=== PATIENT | male | born 1975 | race Caucasian/White ===

== ENCOUNTER 2021-11-20 23:41 | Inpatient (IN) | payer BC, SELFPAY ==
[2021-11-21 02:02] VITALS: BMI 30.3
[2021-11-21 03:49] LABS: Amphetamine Not Detected (NotDetected); Barbiturates Screen Not Detected (NotDetected); Benzodiazepine Screen Not Detected (NotDetected); Cocaine Metabolite Screen Not Detected (NotDetected); Methadone Not Detected (NotDetected); Methamphetamine Not Detected (NotDetected); Opiate Screen Detected (NotDetected); Oxycodone Screen Not Detected (NotDetected); Phencyclidine (PCP) Not Detected (NotDetected); THC/Cannabinoid Screen Not Detected (NotDetected); Tricyclic Screen Not Detected (NotDetected)
[2021-11-21 03:56] LABS: Bacteria/HPF None Seen HPF (None Seen); Bilirubin Negative (Negative); Blood, Urine 1+ (Negative); Calcium Oxalate Crystals Rare HPF (None Seen); Clarity Clear (Clear); Glucose, Urine (Dipstick) Normal (Negative); Ketone, Urine Negative (Negative); Leukocyte 250 Leu/uL (Negative); Nitrite Negative (Negative); Protein, Urine (Dipstick) 30 mg/dL (Neg-Trace); Specific Gravity, Urine 1.014 (1.002-1.036); Squamous Epithelial 0-3 HPF (0-3); Urobilinogen Normal mg/dL (Less than 2); WBC/HPF 21-50 HPF (0-3); pH, Urine 5.5 (5.0-9.0)
[2021-11-21 04:00] LABS: Creatinine, Urine 123.84 mg/dL (63-166)
[2021-11-21] MEDS: Sodium Chloride 0.9% 1,000 ML IV SCH ×3 (04:34→21:25)
[2021-11-21 06:35] LABS: #Eosinphils 0.3 thou/uL (0.0-0.7); #Lymphocytes 1.1 thou/uL (1.20-3.40); #Monocytes 0.4 thou/uL (0.11-0.59); %Basophils 0.1 % (0.0-1.0); %Eosinophils 7.9 % (0.0-10.0); %Lymphocytes 28.2 % (21.0-51.0); %Monocytes 9.8 % (0.0-10.0); Hemoglobin 10.3 g/dL (14.0-18.0); Mean Corpuscular HGB CONC 35.4 g/dL (32.0-36.0); Mean Corpuscular Hemoglobin 32.9 pg (27.0-31.0); Mean Corpuscular Volume 92.8 fL (78.0-98.0); Mean Platelet Volume 8.3 fL (7.4-10.4); Platelet Count 135 thou/uL (130-400); RBC Distribution Width 14.5 % (11.5-14.5); Red Blood Cell (RBC) Count 3.15 mill/uL (4.70-6.10); White Blood Cell (WBC) Count 3.8 thou/uL (4.8-10.8)
[2021-11-21 06:55] LABS: Hemoglobin A1c 4.5 % (4.0-6.0)
[2021-11-21 07:09] LABS: Phosphorus 2.9 mg/dL (2.3-4.7)
[2021-11-21 07:13] LABS: ALT (SGPT) 10 U/L (8-55); AST (SGOT) 16 U/L (5-34); Albumin 2.9 g/dL (3.5-5.0); Alkaline Phosphatase 64 U/L (40-110); Anion Gap 10 mmol/L (10-20); BUN (Urea Nitrogen) 24 mg/dL (8.9-20.6); Bilirubin, Total 0.9 mg/dL (0.2-1.2); CK (CPK) 39 U/L (30-200); Calc. Creatinine Clearance 48 mL/min (70-130); Calcium 10.3 mg/dL (7.8-10.44); Carbon Dioxide 22 mmol/L (22-29); Chloride 111 mmol/L (98-107); Glucose 98 mg/dL (70-105); Potassium 3.2 mmol/L (3.5-5.1); Protein, Total 6.9 g/dL (6.0-8.3); Sodium 140 mmol/L (136-145)
[2021-11-21 07:24] LABS: Band 12 % (5-11); Eosinophils 8 % (0-10); Lymphocytes 30 % (21-51); Metamyelocyte 1 % (0-0); Monocytes 6 % (0-10)
[2021-11-21 07:25] LABS: Neutrophil 43 % (42-75); Platelet Morphology Comment Appears Adequate; Polychromasia SLIGHT = 2-3 cells (100X) (0-2/hpf)
[2021-11-21 07:33] LABS: Vitamin B12 232 pg/mL (211-911)
[2021-11-21 07:38] LABS: HIV (1/2) Antibody/Antigen Non-Reactive (NonReactive); HIV 1/2 INDEX 0.09 S/CO (<1.00); Hep C IgG Ab Non-Reactive (NonReactive); Hep C Index 0.39 S/CO (0-0.79)
[2021-11-21] MEDS: Heparin 5,000 UNITS/ML VIAL SC SCH ×3 (09:02→20:55)
[2021-11-21] MEDS ORDERED: Potassium Chloride 20 MEQ TAB PO SCH (10:00)
[2021-11-21 10:56] LABS: Syphilis Antibody Nonreactive (Nonreactive); Syphilis Antibody Index 0.12 S/CO (<1.00 Non-Reactive)
[2021-11-21] MEDS: Acetaminophen 325 MG TAB PO PRN (11:12)
[2021-11-21] MEDS ORDERED: Magnevist 469MG/ML 20 ML VIAL ONE ×4 (12:09)
[2021-11-21 13:44] LABS: Anion Gap 10 mmol/L (10-20); BUN (Urea Nitrogen) 22 mg/dL (8.9-20.6); Calc. Creatinine Clearance 50 mL/min (70-130); Calcium 9.6 mg/dL (7.8-10.44); Carbon Dioxide 20 mmol/L (22-29); Chloride 112 mmol/L (98-107); Glucose 118 mg/dL (70-105); Potassium 3.4 mmol/L (3.5-5.1); Sodium 139 mmol/L (136-145)
[2021-11-21] MEDS ORDERED: traMADol HCl 50 MG TAB PO SCH (21:15)
[2021-11-22 05:22] LABS: #Eosinphils 0.4 thou/uL (0.0-0.7); #Lymphocytes 0.7 thou/uL (1.20-3.40); #Monocytes 0.4 thou/uL (0.11-0.59); #Neutrophils 2.5 thou/uL (1.40-6.50); %Basophils 0.1 % (0.0-1.0); %Eosinophils 9.8 % (0.0-10.0); %Lymphocytes 17.4 % (21.0-51.0); %Monocytes 9.3 % (0.0-10.0); %Neutrophils 63.3 % (42.0-75.0); Hemoglobin 10.6 g/dL (14.0-18.0); Mean Corpuscular HGB CONC 34.9 g/dL (32.0-36.0); Mean Corpuscular Hemoglobin 32.1 pg (27.0-31.0); Mean Platelet Volume 8.1 fL (7.4-10.4); Platelet Count 148 thou/uL (130-400); RBC Distribution Width 14.4 % (11.5-14.5); Red Blood Cell (RBC) Count 3.31 mill/uL (4.70-6.10)
[2021-11-22 05:47] LABS: ALT (SGPT) 12 U/L (8-55); AST (SGOT) 14 U/L (5-34); Alkaline Phosphatase 74 U/L (40-110); Anion Gap 10 mmol/L (10-20); BUN (Urea Nitrogen) 19 mg/dL (8.9-20.6); Bilirubin, Total 0.8 mg/dL (0.2-1.2); Calc. Creatinine Clearance 56 mL/min (70-130); Calcium 9.5 mg/dL (7.8-10.44); Carbon Dioxide 23 mmol/L (22-29); Chloride 110 mmol/L (98-107); Globulin 4.1 g/dL (2.4-3.5); Glucose 89 mg/dL (70-105); Potassium 3.5 mmol/L (3.5-5.1); Protein, Total 7.1 g/dL (6.0-8.3); Sodium 139 mmol/L (136-145)
[2021-11-22] MEDS: Sodium Chloride 0.9% 1,000 ML IV SCH ×2 (05:50→15:12)
[2021-11-22] MEDS: Heparin 5,000 UNITS/ML VIAL SC SCH ×3 (08:30→22:11)
[2021-11-22] MEDS ORDERED: NIFEdipine XL 60 MG TAB PO SCH (09:15)
[2021-11-22] MEDS ORDERED: Lorazepam 2 MG/ML VIAL SLOW IVP SCH (09:15)
[2021-11-22] MEDS: Lidocaine 5% Patch TD PRN (12:20)
[2021-11-22] MEDS ORDERED: Cyclobenzaprine 10 MG TAB PO SCH (14:30)
[2021-11-22] MEDS ORDERED: Simethicone Chewable 80 MG TAB PO SCH (22:45)
[2021-11-22] MEDS ORDERED: Ondansetron ODT 4 MG TAB PO PRN (22:54)
[2021-11-22] MEDS ORDERED: Simethicone Chewable 80 MG TAB PO PRN (23:52)
[2021-11-23] MEDS: Sodium Chloride 0.9% 1,000 ML IV SCH ×4 (01:28→23:59)
[2021-11-23 05:28] LABS: #Eosinphils 0.3 thou/uL (0.0-0.7); #Lymphocytes 0.8 thou/uL (1.20-3.40); #Monocytes 0.3 thou/uL (0.11-0.59); #Neutrophils 2.5 thou/uL (1.40-6.50); %Eosinophils 7.2 % (0.0-10.0); %Lymphocytes 20.5 % (21.0-51.0); %Monocytes 7.9 % (0.0-10.0); %Neutrophils 64.5 % (42.0-75.0); Hemoglobin 11.2 g/dL (14.0-18.0); Mean Corpuscular HGB CONC 34.8 g/dL (32.0-36.0); Mean Corpuscular Hemoglobin 32.2 pg (27.0-31.0); Mean Corpuscular Volume 92.6 fL (78.0-98.0); Mean Platelet Volume 7.9 fL (7.4-10.4); Platelet Count 144 thou/uL (130-400); RBC Distribution Width 14.7 % (11.5-14.5); Red Blood Cell (RBC) Count 3.48 mill/uL (4.70-6.10); White Blood Cell (WBC) Count 3.9 thou/uL (4.8-10.8)
[2021-11-23 05:51] LABS: ALT (SGPT) 55 U/L (8-55); AST (SGOT) 110 U/L (5-34); Albumin 3.1 g/dL (3.5-5.0); Alkaline Phosphatase 225 U/L (40-110); Anion Gap 10 mmol/L (10-20); BUN (Urea Nitrogen) 14 mg/dL (8.9-20.6); Bilirubin, Total 2.3 mg/dL (0.2-1.2); Calc. Creatinine Clearance 61 mL/min (70-130); Calcium 9.6 mg/dL (7.8-10.44); Carbon Dioxide 25 mmol/L (22-29); Chloride 110 mmol/L (98-107); Globulin 4.2 g/dL (2.4-3.5); Glucose 95 mg/dL (70-105); Potassium 3.3 mmol/L (3.5-5.1); Protein, Total 7.3 g/dL (6.0-8.3); Sodium 142 mmol/L (136-145)
[2021-11-23] MEDS ORDERED: Potassium Chloride 20 MEQ TAB PO SCH (08:15)
[2021-11-23] MEDS: Heparin 5,000 UNITS/ML VIAL SC SCH ×3 (09:11→21:11)
[2021-11-23] MEDS: Polyethylene Glycol 3350 17 GM Packet PO SCH ×2 (09:11→21:11)
[2021-11-23] MEDS: NIFEdipine XL 30 MG TAB PO SCH (09:11)
[2021-11-23] MEDS: Senokot 8.6 MG TAB PO SCH (09:12)
[2021-11-23 14:45] LABS: Troponin I 0.124 ng/mL (< 0.028)
[2021-11-23] MEDS ORDERED: NIFEdipine XL 30 MG TAB PO SCH (15:15)
[2021-11-23] MEDS ORDERED: Aspirin 81 mg Enteric Coated Tablet PO SCH (15:15)
[2021-11-23 16:36] LABS: Amphetamine Not Detected (NotDetected); Barbiturates Screen Not Detected (NotDetected); Benzodiazepine Screen Not Detected (NotDetected); Cocaine Metabolite Screen Not Detected (NotDetected); Methadone Not Detected (NotDetected); Methamphetamine Not Detected (NotDetected); Opiate Screen Not Detected (NotDetected); Oxycodone Screen Not Detected (NotDetected); Phencyclidine (PCP) Not Detected (NotDetected); THC/Cannabinoid Screen Not Detected (NotDetected); Tricyclic Screen Not Detected (NotDetected)
[2021-11-23] MEDS: Lidocaine 5% Patch TD PRN (17:26)
[2021-11-23 17:38] LABS: Troponin I 0.117 ng/mL (< 0.028)
[2021-11-23 20:50] LABS: Troponin I 0.098 ng/mL (< 0.028)
[2021-11-23] MEDS ORDERED: traMADol HCl 50 MG TAB PO PRN (23:11)
[2021-11-23] MEDS: Acetaminophen 325 MG TAB PO PRN (23:14)
[2021-11-23] MEDS ORDERED: Gabapentin 100 MG CAP PO SCH (23:45)
[2021-11-24 05:13] LABS: #Eosinphils 0.4 thou/uL (0.0-0.7); #Lymphocytes 0.8 thou/uL (1.20-3.40); #Monocytes 0.3 thou/uL (0.11-0.59); #Neutrophils 2.5 thou/uL (1.40-6.50); %Eosinophils 9.7 % (0.0-10.0); %Lymphocytes 20.6 % (21.0-51.0); %Monocytes 7.5 % (0.0-10.0); %Neutrophils 61.2 % (42.0-75.0); Hemoglobin 10.7 g/dL (14.0-18.0); Mean Corpuscular HGB CONC 34.1 g/dL (32.0-36.0); Mean Corpuscular Hemoglobin 31.7 pg (27.0-31.0); Platelet Count 140 thou/uL (130-400); RBC Distribution Width 14.5 % (11.5-14.5); Red Blood Cell (RBC) Count 3.39 mill/uL (4.70-6.10); White Blood Cell (WBC) Count 4.1 thou/uL (4.8-10.8)
[2021-11-24 05:35] LABS: ALT (SGPT) 33 U/L (8-55); AST (SGOT) 29 U/L (5-34); Alkaline Phosphatase 174 U/L (40-110); Anion Gap 8 mmol/L (10-20); BUN (Urea Nitrogen) 10 mg/dL (8.9-20.6); Bilirubin, Total 0.8 mg/dL (0.2-1.2); Calc. Creatinine Clearance 74 mL/min (70-130); Calcium 8.8 mg/dL (7.8-10.44); Carbon Dioxide 22 mmol/L (22-29); Chloride 114 mmol/L (98-107); Globulin 4.1 g/dL (2.4-3.5); Glucose 92 mg/dL (70-105); Protein, Total 7.1 g/dL (6.0-8.3); Sodium 141 mmol/L (136-145)
[2021-11-24 05:38] LABS: Potassium 2.9 mmol/L (3.5-5.1)
[2021-11-24] MEDS ORDERED: Potassium Chloride 20 MEQ TAB PO SCH ×2 (05:45→08:00)
[2021-11-24] MEDS: Senokot 8.6 MG TAB PO SCH (07:39)
[2021-11-24] MEDS: Polyethylene Glycol 3350 17 GM Packet PO SCH ×2 (07:39→20:53)
[2021-11-24] MEDS: Aspirin 81 mg Enteric Coated Tablet PO SCH (08:32)
[2021-11-24] MEDS: NIFEdipine XL 30 MG TAB PO SCH (08:32)
[2021-11-24] MEDS: Sodium Chloride 0.9% 1,000 ML IV SCH ×3 (08:32→22:36)
[2021-11-24] MEDS: Heparin 5,000 UNITS/ML VIAL SC SCH ×3 (08:33→20:53)
[2021-11-24] MEDS: Gabapentin 100 MG CAP PO SCH ×3 (08:33→20:52)
[2021-11-24] MEDS ORDERED: NIFEdipine XL 60 MG TAB PO SCH (09:00)
[2021-11-24 10:54] LABS: CSF Source CSF; Clarity Clear (Clear); Tube # 4
[2021-11-24 11:07] LABS: CSF RBC Count - Manual 1 /cu.mm (None Seen); CSF WBC/NonHematics Count-Man 110 /cu.mm (0-5)
[2021-11-24 11:25] LABS: CSF, Glucose 15 mg/dl (40-70)
[2021-11-24 12:06] LABS: Cell Count Non Hematic 10 %; Lymphocytes 88 %; Segmented Neutrophils 2 %
[2021-11-24] MEDS ORDERED: Morphine 2 MG/ML VIAL ONE (12:43)
[2021-11-24 13:47] LABS: CSF, Protein 220 mg/dL (15-40)
[2021-11-24 15:42] LABS: Potassium 3.5 mmol/L (3.5-5.1)
[2021-11-24 15:43] LABS: Ref Lab Test Ordered MTB PCR; Reference Lab Name LABCORP
[2021-11-24 16:24] LABS: Anion Gap 11 mmol/L (10-20); BUN (Urea Nitrogen) 10 mg/dL (8.9-20.6); Calc. Creatinine Clearance 66 mL/min (70-130); Calcium 9.7 mg/dL (7.8-10.44); Carbon Dioxide 21 mmol/L (22-29); Chloride 112 mmol/L (98-107); Glucose 141 mg/dL (70-105); Potassium 3.5 mmol/L (3.5-5.1); Sodium 140 mmol/L (136-145)
[2021-11-25] MEDS: Calcium Carbonate 500 MG ChewTAB PO PRN (01:16)
[2021-11-25] MEDS: Acetaminophen 325 MG TAB PO PRN (03:14)
[2021-11-25 05:01] LABS: #Eosinphils 0.3 thou/uL (0.0-0.7); #Lymphocytes 0.9 thou/uL (1.20-3.40); #Monocytes 0.3 thou/uL (0.11-0.59); #Neutrophils 2.7 thou/uL (1.40-6.50); %Basophils 0.8 % (0.0-1.0); %Eosinophils 7.4 % (0.0-10.0); %Lymphocytes 20.6 % (21.0-51.0); %Monocytes 7.8 % (0.0-10.0); %Neutrophils 63.5 % (42.0-75.0); Hemoglobin 10.6 g/dL (14.0-18.0); Mean Corpuscular HGB CONC 34.8 g/dL (32.0-36.0); Mean Corpuscular Hemoglobin 32.5 pg (27.0-31.0); Mean Corpuscular Volume 93.3 fL (78.0-98.0); Mean Platelet Volume 8.2 fL (7.4-10.4); Platelet Count 132 thou/uL (130-400); RBC Distribution Width 14.5 % (11.5-14.5); Red Blood Cell (RBC) Count 3.27 mill/uL (4.70-6.10); White Blood Cell (WBC) Count 4.3 thou/uL (4.8-10.8)
[2021-11-25 05:39] LABS: ALT (SGPT) 25 U/L (8-55); AST (SGOT) 19 U/L (5-34); Alkaline Phosphatase 154 U/L (40-110); Anion Gap 8 mmol/L (10-20); BUN (Urea Nitrogen) 14 mg/dL (8.9-20.6); Bilirubin, Total 0.7 mg/dL (0.2-1.2); Calc. Creatinine Clearance 76 mL/min (70-130); Calcium 9.1 mg/dL (7.8-10.44); Carbon Dioxide 21 mmol/L (22-29); Cardiac Risk 4.3 (Less than 4.5); Chloride 112 mmol/L (98-107); Cholesterol 116 mg/dl (< 200 Desired); Glucose 103 mg/dL (70-105); HDL Cholesterol 27 mg/dL (>60 Neg Risk); LDL Cholesterol, Calculated 37 mg/dL; Potassium 3.3 mmol/L (3.5-5.1); Sodium 138 mmol/L (136-145); Triglycerides 258 mg/dL (Less than 150)
[2021-11-25] MEDS: Sodium Chloride 0.9% 1,000 ML IV SCH ×2 (08:01→14:44)
[2021-11-25] MEDS: Aspirin 81 mg Enteric Coated Tablet PO SCH (08:02)
[2021-11-25] MEDS: Polyethylene Glycol 3350 17 GM Packet PO SCH ×2 (08:02→19:51)
[2021-11-25] MEDS: Carvedilol 6.25 MG TAB PO SCH ×2 (08:02→16:45)
[2021-11-25] MEDS: Heparin 5,000 UNITS/ML VIAL SC SCH ×3 (08:02→19:57)
[2021-11-25] MEDS: Gabapentin 100 MG CAP PO SCH ×3 (08:02→19:56)
[2021-11-25] MEDS: Senokot 8.6 MG TAB PO SCH (08:02)
[2021-11-25] MEDS ORDERED: Potassium Chloride 20 MEQ TAB PO SCH (15:15)
[2021-11-25] MEDS ORDERED: Ibuprofen 100 MG/5 ML UDCUP PO SCH (15:15)
[2021-11-26] MEDS: Sodium Chloride 0.9% 1,000 ML IV SCH ×3 (01:20→17:30)
[2021-11-26 05:27] LABS: #Eosinphils 0.5 thou/uL (0.0-0.7); #Lymphocytes 0.9 thou/uL (1.20-3.40); #Monocytes 0.3 thou/uL (0.11-0.59); #Neutrophils 2.6 thou/uL (1.40-6.50); %Basophils 0.3 % (0.0-1.0); %Eosinophils 10.9 % (0.0-10.0); %Lymphocytes 21.2 % (21.0-51.0); %Monocytes 6.6 % (0.0-10.0); Hemoglobin 12.5 g/dL (14.0-18.0); Mean Corpuscular HGB CONC 34.2 g/dL (32.0-36.0); Mean Corpuscular Hemoglobin 32.3 pg (27.0-31.0); Mean Corpuscular Volume 94.3 fL (78.0-98.0); Mean Platelet Volume 8.3 fL (7.4-10.4); Platelet Count 132 thou/uL (130-400); RBC Distribution Width 14.5 % (11.5-14.5); Red Blood Cell (RBC) Count 3.86 mill/uL (4.70-6.10); White Blood Cell (WBC) Count 4.2 thou/uL (4.8-10.8)
[2021-11-26 05:57] LABS: Phosphorus 2.2 mg/dL (2.3-4.7)
[2021-11-26 05:58] LABS: ALT (SGPT) 25 U/L (8-55); AST (SGOT) 24 U/L (5-34); Albumin 3.3 g/dL (3.5-5.0); Alkaline Phosphatase 140 U/L (40-110); Anion Gap 11 mmol/L (10-20); BUN (Urea Nitrogen) 15 mg/dL (8.9-20.6); Bilirubin, Total 0.8 mg/dL (0.2-1.2); Calc. Creatinine Clearance 74 mL/min (70-130); Calcium 9.7 mg/dL (7.8-10.44); Carbon Dioxide 21 mmol/L (22-29); Chloride 111 mmol/L (98-107); Globulin 4.6 g/dL (2.4-3.5); Glucose 87 mg/dL (70-105); Magnesium 1.6 mg/dL (1.6-2.6); Potassium 3.7 mmol/L (3.5-5.1); Protein, Total 7.9 g/dL (6.0-8.3); Sodium 139 mmol/L (136-145)
[2021-11-26 06:02] LABS: Troponin I 0.086 ng/mL (< 0.028)
[2021-11-26] MEDS: hydrALAZINE 20 MG/ML VIAL SLOW IVP PRN (06:14)
[2021-11-26] MEDS: Aspirin 81 mg Enteric Coated Tablet PO SCH (08:31)
[2021-11-26] MEDS: Polyethylene Glycol 3350 17 GM Packet PO SCH ×2 (08:31→20:39)
[2021-11-26] MEDS: Gabapentin 100 MG CAP PO SCH ×3 (08:31→20:21)
[2021-11-26] MEDS: Heparin 5,000 UNITS/ML VIAL SC SCH ×3 (08:31→20:29)
[2021-11-26] MEDS: Senokot 8.6 MG TAB PO SCH (08:31)
[2021-11-26] MEDS ORDERED: Magnesium 2 GM/50 ML(in water) 2 GM in Premix Bag 1 BAG IVPB SCH (09:30)
[2021-11-26] MEDS ORDERED: PHOS-NAK 1 PKT PACK PO SCH (09:30)
[2021-11-26 15:14] LABS: Myelin Basic Protein, CSF 15.5 ng/mL (0.0-4.7)
[2021-11-26 16:14] LABS: A/G Ratio 0.8 (0.7-1.7); Albumin 3.4 g/dL (2.9-4.4); Alpha 1 0.3 g/dL (0.0-0.4); Alpha 2 0.5 g/dL (0.4-1.0); Beta 1.1 g/dL (0.7-1.3); Gamma 2.4 g/dL (0.4-1.8); Globulin, Total 4.3 g/dL (2.2-3.9); M-Spike 1.3 g/dL (Not Observed)
[2021-11-26] MEDS ORDERED: Carvedilol 6.25 MG TAB PO SCH (17:00)
[2021-11-26] MEDS: Acetaminophen 325 MG TAB PO PRN (17:23)
[2021-11-26] MEDS ORDERED: diphenhydrAMINE 50 MG/ML VIAL IVP SCH (20:00)
[2021-11-26] MEDS ORDERED: Fentanyl 100 MCG/2 ML VIAL SLOW IVP SCH (20:00)
[2021-11-26] MEDS: Lisinopril 10 MG TAB PO SCH (23:18)
[2021-11-27] MEDS: Sodium Chloride 0.9% 1,000 ML IV SCH (03:22)
[2021-11-27 07:18] LABS: #Eosinphils 0.5 thou/uL (0.0-0.7); #Monocytes 0.4 thou/uL (0.11-0.59); #Neutrophils 2.4 thou/uL (1.40-6.50); %Eosinophils 11.9 % (0.0-10.0); %Lymphocytes 23.9 % (21.0-51.0); %Neutrophils 55.2 % (42.0-75.0); Hemoglobin 10.5 g/dL (14.0-18.0); Mean Corpuscular HGB CONC 33.9 g/dL (32.0-36.0); Mean Corpuscular Hemoglobin 31.9 pg (27.0-31.0); Mean Platelet Volume 8.3 fL (7.4-10.4); Platelet Count 117 thou/uL (130-400); RBC Distribution Width 14.6 % (11.5-14.5); Red Blood Cell (RBC) Count 3.29 mill/uL (4.70-6.10); White Blood Cell (WBC) Count 4.3 thou/uL (4.8-10.8)
[2021-11-27 07:32] LABS: Albumin 2.9 g/dL (3.5-5.0); Alkaline Phosphatase 103 U/L (40-110); Anion Gap 9 mmol/L (10-20); Bilirubin, Total 0.6 mg/dL (0.2-1.2); Calc. Creatinine Clearance 65 mL/min (70-130); Carbon Dioxide 22 mmol/L (22-29); Chloride 111 mmol/L (98-107); Globulin 3.9 g/dL (2.4-3.5); Glucose 90 mg/dL (70-105); Potassium 3.4 mmol/L (3.5-5.1); Protein, Total 6.8 g/dL (6.0-8.3); Sodium 139 mmol/L (136-145)
[2021-11-27 07:42] LABS: ALT (SGPT) 23 U/L (8-55); AST (SGOT) 21 U/L (5-34); BUN (Urea Nitrogen) 22 mg/dL (8.9-20.6)
[2021-11-27] MEDS ORDERED: Regadenoson 0.4 MG/5 ML SYRINGE ONE (08:51)
[2021-11-27] MEDS ORDERED: Magnesium 2 GM/50 ML(in water) 2 GM in Premix Bag 1 BAG IVPB SCH (09:00)
[2021-11-27] MEDS ORDERED: PHOS-NAK 1 PKT PACK PO SCH (09:00)
[2021-11-27] MEDS ORDERED: Potassium Chloride 20 MEQ TAB PO SCH (09:00)
[2021-11-27] MEDS: Gabapentin 100 MG CAP PO SCH ×3 (09:17→20:27)
[2021-11-27] MEDS: Polyethylene Glycol 3350 17 GM Packet PO SCH ×2 (09:17→20:23)
[2021-11-27] MEDS: Aspirin 81 mg Enteric Coated Tablet PO SCH (09:17)
[2021-11-27] MEDS: Lisinopril 10 MG TAB PO SCH ×2 (09:17→20:26)
[2021-11-27] MEDS: Heparin 5,000 UNITS/ML VIAL SC SCH ×3 (09:17→20:28)
[2021-11-27] MEDS: Senokot 8.6 MG TAB PO SCH (15:13)
[2021-11-27 15:15] LABS: Albumin-Ur 37.4 % (.); Alpha 1 - Ur 7.3 % (.); Beta-Ur 22.7 % (.); Gamma-Ur 22.6 % (.); M-Spike,% 10.1 % (Not Observed); Protein, Urine 8.9 mg/dL (Not Estab.)
[2021-11-27] MEDS: hydrALAZINE 20 MG/ML VIAL SLOW IVP PRN (15:39)
[2021-11-27] MEDS: Carvedilol 6.25 MG TAB PO SCH (17:06)
[2021-11-27] MEDS: Acetaminophen 325 MG TAB PO PRN (20:56)
[2021-11-28] MEDS: Polyethylene Glycol 3350 17 GM Packet PO SCH ×2 (09:22→23:02)
[2021-11-28] MEDS: Senokot 8.6 MG TAB PO SCH (09:22)
[2021-11-28] MEDS: Carvedilol 6.25 MG TAB PO SCH ×2 (09:22→16:25)
[2021-11-28] MEDS: Lisinopril 10 MG TAB PO SCH ×2 (09:23→20:57)
[2021-11-28] MEDS: Aspirin 81 mg Enteric Coated Tablet PO SCH (09:23)
[2021-11-28] MEDS: Gabapentin 100 MG CAP PO SCH ×3 (09:23→20:57)
[2021-11-28] MEDS: Heparin 5,000 UNITS/ML VIAL SC SCH ×3 (09:27→20:59)
[2021-11-28 14:15] LABS: West Nile Virus IgG Ab - CSF Positive (Negative); West Nile Virus IgM Ab - CSF Negative (Negative)
[2021-11-28 15:06] LABS: ANA Symphony (Qualitative) Negative (Negative); ANA Symphony (Quantitative) 0.2 Ratio (< 0.7 Negative); dsDNA IgG Antibody 0.7 IU/mL (<10 Negative)
[2021-11-29 05:26] LABS: #Eosinphils 0.5 thou/uL (0.0-0.7); #Monocytes 0.3 thou/uL (0.11-0.59); #Neutrophils 2.1 thou/uL (1.40-6.50); %Eosinophils 13.7 % (0.0-10.0); %Lymphocytes 25.5 % (21.0-51.0); %Monocytes 7.2 % (0.0-10.0); %Neutrophils 53.5 % (42.0-75.0); Hemoglobin 10.7 g/dL (14.0-18.0); Mean Corpuscular HGB CONC 34.6 g/dL (32.0-36.0); Mean Corpuscular Hemoglobin 32.5 pg (27.0-31.0); Mean Corpuscular Volume 93.8 fL (78.0-98.0); Mean Platelet Volume 8.5 fL (7.4-10.4); Platelet Count 123 thou/uL (130-400); RBC Distribution Width 14.6 % (11.5-14.5); Red Blood Cell (RBC) Count 3.29 mill/uL (4.70-6.10); White Blood Cell (WBC) Count 3.8 thou/uL (4.8-10.8)
[2021-11-29 05:50] LABS: ALT (SGPT) 17 U/L (8-55); AST (SGOT) 14 U/L (5-34); Alkaline Phosphatase 90 U/L (40-110); Anion Gap 9 mmol/L (10-20); BUN (Urea Nitrogen) 20 mg/dL (8.9-20.6); Bilirubin, Total 0.7 mg/dL (0.2-1.2); Calc. Creatinine Clearance 71 mL/min (70-130); Carbon Dioxide 23 mmol/L (22-29); Chloride 109 mmol/L (98-107); Glucose 89 mg/dL (70-105); Potassium 3.8 mmol/L (3.5-5.1); Sodium 137 mmol/L (136-145)
[2021-11-29] MEDS: Lisinopril 10 MG TAB PO SCH ×2 (09:52→20:14)
[2021-11-29] MEDS: Gabapentin 100 MG CAP PO SCH ×3 (09:52→20:14)
[2021-11-29] MEDS: Carvedilol 6.25 MG TAB PO SCH ×2 (09:52→15:39)
[2021-11-29] MEDS: Heparin 5,000 UNITS/ML VIAL SC SCH ×3 (09:52→20:18)
[2021-11-29] MEDS: Polyethylene Glycol 3350 17 GM Packet PO SCH ×3 (09:52→20:27)
[2021-11-29] MEDS: Senokot 8.6 MG TAB PO SCH ×2 (09:52→09:57)
[2021-11-29] MEDS: Aspirin 81 mg Enteric Coated Tablet PO SCH (09:53)
[2021-11-29] MEDS: Acetaminophen 325 MG TAB PO PRN (11:08)
[2021-11-29] MEDS: Calcium Carbonate 500 MG ChewTAB PO PRN (21:28)
[2021-11-30] MEDS: Heparin 5,000 UNITS/ML VIAL SC SCH ×3 (09:11→20:09)
[2021-11-30] MEDS: Carvedilol 6.25 MG TAB PO SCH ×2 (09:11→16:45)
[2021-11-30] MEDS: Aspirin 81 mg Enteric Coated Tablet PO SCH (09:11)
[2021-11-30] MEDS: Gabapentin 100 MG CAP PO SCH ×3 (09:11→20:09)
[2021-11-30] MEDS: Lisinopril 10 MG TAB PO SCH ×2 (09:11→20:09)
[2021-11-30] MEDS: Lidocaine 5% Patch TD PRN (10:47)
[2021-11-30] MEDS: Acetaminophen 325 MG TAB PO PRN (10:47)
[2021-11-30] MEDS: Senokot 8.6 MG TAB PO SCH (11:31)
[2021-11-30] MEDS: Polyethylene Glycol 3350 17 GM Packet PO SCH ×2 (11:31→20:13)
[2021-11-30] MEDS: predniSONE 50 MG TAB PO SCH (20:09)
[2021-12-01] MEDS: predniSONE 50 MG TAB PO SCH ×2 (02:01→08:03)
[2021-12-01] MEDS: Calcium Carbonate 500 MG ChewTAB PO PRN ×2 (06:41→17:39)
[2021-12-01] MEDS ORDERED: diphenhydrAMINE 50 MG CAP PO SCH (08:00)
[2021-12-01] MEDS: Gabapentin 100 MG CAP PO SCH ×3 (08:03→21:54)
[2021-12-01] MEDS: Carvedilol 6.25 MG TAB PO SCH ×3 (08:03→17:39)
[2021-12-01] MEDS: Lisinopril 10 MG TAB PO SCH ×2 (08:03→21:54)
[2021-12-01] MEDS: Aspirin 81 mg Enteric Coated Tablet PO SCH (08:03)
[2021-12-01] MEDS: Senokot 8.6 MG TAB PO SCH (08:04)
[2021-12-01] MEDS: Polyethylene Glycol 3350 17 GM Packet PO SCH ×2 (08:04→21:55)
[2021-12-01] MEDS: Heparin 5,000 UNITS/ML VIAL SC SCH ×3 (08:06→21:55)
[2021-12-01 08:20] LABS: #Eosinphils 0.1 thou/uL (0.0-0.7); #Lymphocytes 0.6 thou/uL (1.20-3.40); #Monocytes 0.1 thou/uL (0.11-0.59); #Neutrophils 3.1 thou/uL (1.40-6.50); %Eosinophils 2.8 % (0.0-10.0); %Lymphocytes 14.6 % (21.0-51.0); %Monocytes 3.2 % (0.0-10.0); %Neutrophils 79.4 % (42.0-75.0); Hemoglobin 11.8 g/dL (14.0-18.0); Mean Corpuscular HGB CONC 34.5 g/dL (32.0-36.0); Mean Corpuscular Hemoglobin 32.8 pg (27.0-31.0); Mean Corpuscular Volume 94.9 fL (78.0-98.0); Platelet Count 141 thou/uL (130-400); RBC Distribution Width 14.7 % (11.5-14.5); Red Blood Cell (RBC) Count 3.59 mill/uL (4.70-6.10); White Blood Cell (WBC) Count 3.9 thou/uL (4.8-10.8)
[2021-12-01 08:43] LABS: ALT (SGPT) 15 U/L (8-55); AST (SGOT) 11 U/L (5-34); Albumin 3.3 g/dL (3.5-5.0); Alkaline Phosphatase 107 U/L (40-110); Anion Gap 10 mmol/L (10-20); BUN (Urea Nitrogen) 23 mg/dL (8.9-20.6); Bilirubin, Total 0.5 mg/dL (0.2-1.2); Calc. Creatinine Clearance 64 mL/min (70-130); Calcium 9.6 mg/dL (7.8-10.44); Carbon Dioxide 25 mmol/L (22-29); Chloride 106 mmol/L (98-107); Globulin 4.3 g/dL (2.4-3.5); Glucose 226 mg/dL (70-105); Potassium 4.1 mmol/L (3.5-5.1); Protein, Total 7.6 g/dL (6.0-8.3); Sodium 137 mmol/L (136-145)
[2021-12-01] MEDS ORDERED: Iopamidol-370 76% 500 ML 1 ML ONE (10:32)
[2021-12-02] MEDS: Calcium Carbonate 500 MG ChewTAB PO PRN (08:43)
[2021-12-02] MEDS: Senokot 8.6 MG TAB PO SCH (08:44)
[2021-12-02] MEDS: Lisinopril 10 MG TAB PO SCH ×2 (08:44→22:59)
[2021-12-02] MEDS: Carvedilol 6.25 MG TAB PO SCH ×3 (08:45→18:02)
[2021-12-02] MEDS: Gabapentin 100 MG CAP PO SCH ×3 (08:45→22:59)
[2021-12-02] MEDS: Polyethylene Glycol 3350 17 GM Packet PO SCH ×2 (08:47→23:50)
[2021-12-02] MEDS: Heparin 5,000 UNITS/ML VIAL SC SCH ×3 (08:53→22:58)
[2021-12-02] MEDS: Acetaminophen 325 MG TAB PO PRN (12:11)
[2021-12-02] MEDS: Lidocaine 5% Patch TD PRN (12:12)
[2021-12-02] MEDS ORDERED: Lidocaine 1% PF 5 ML VIAL ONE (13:25)
[2021-12-02] MEDS ORDERED: Sodium Bicarbonate 2.5 MEQ/5 ML VIAL ONE (13:25)
[2021-12-02] MEDS: Aspirin 81 mg Enteric Coated Tablet PO SCH (14:10)
[2021-12-03 05:27] LABS: Band 3 % (5-11); Eosinophils 1 % (0-10); Hemoglobin 10.3 g/dL (14.0-18.0); Hypochromia SLIGHT = 6-15 cells (100X) (0-5/hpf); Lymphocytes 21 % (21-51); MDiff Complete? YES; Mean Corpuscular HGB CONC 33.6 g/dL (32.0-36.0); Mean Corpuscular Hemoglobin 32.4 pg (27.0-31.0); Mean Corpuscular Volume 96.3 fL (78.0-98.0); Mean Platelet Volume 8.4 fL (7.4-10.4); Monocytes 8 % (0-10); Neutrophil 67 % (42-75); Platelet Count 144 thou/uL (130-400); Platelet Morphology Comment Appears Adequate; RBC Distribution Width 15.1 % (11.5-14.5); Red Blood Cell (RBC) Count 3.19 mill/uL (4.70-6.10); White Blood Cell (WBC) Count 3.8 thou/uL (4.8-10.8)
[2021-12-03 05:31] LABS: ALT (SGPT) 11 U/L (8-55); AST (SGOT) 9 U/L (5-34); Albumin 2.9 g/dL (3.5-5.0); Alkaline Phosphatase 81 U/L (40-110); Anion Gap 9 mmol/L (10-20); BUN (Urea Nitrogen) 30 mg/dL (8.9-20.6); Bilirubin, Total 0.4 mg/dL (0.2-1.2); Calc. Creatinine Clearance 61 mL/min (70-130); Calcium 9.3 mg/dL (7.8-10.44); Carbon Dioxide 26 mmol/L (22-29); Chloride 107 mmol/L (98-107); Globulin 3.5 g/dL (2.4-3.5); Glucose 102 mg/dL (70-105); Potassium 3.8 mmol/L (3.5-5.1); Protein, Total 6.4 g/dL (6.0-8.3); Sodium 138 mmol/L (136-145)
[2021-12-03] MEDS: Carvedilol 6.25 MG TAB PO SCH ×2 (08:21→16:20)
[2021-12-03] MEDS: Gabapentin 100 MG CAP PO SCH ×3 (08:21→19:45)
[2021-12-03] MEDS: Aspirin 81 mg Enteric Coated Tablet PO SCH (08:21)
[2021-12-03] MEDS: Lisinopril 10 MG TAB PO SCH ×2 (08:22→21:42)
[2021-12-03] MEDS: Acetaminophen 500 MG TAB PO PRN (08:22)
[2021-12-03] MEDS: Senokot 8.6 MG TAB PO SCH (08:23)
[2021-12-03] MEDS: Polyethylene Glycol 3350 17 GM Packet PO SCH ×2 (08:23→21:42)
[2021-12-03] MEDS: Heparin 5,000 UNITS/ML VIAL SC SCH ×3 (08:24→19:48)
[2021-12-03 09:29] LABS: Phosphorus 2.5 mg/dL (2.3-4.7)
[2021-12-03] MEDS ORDERED: Lidocaine 1% PF 5 ML VIAL ONE (14:28)
[2021-12-04] MEDS: Aspirin 81 mg Enteric Coated Tablet PO SCH (08:59)
[2021-12-04] MEDS: Senokot 8.6 MG TAB PO SCH (08:59)
[2021-12-04] MEDS: Heparin 5,000 UNITS/ML VIAL SC SCH ×3 (08:59→20:57)
[2021-12-04] MEDS: Carvedilol 6.25 MG TAB PO SCH ×2 (08:59→16:58)
[2021-12-04] MEDS: Gabapentin 100 MG CAP PO SCH ×3 (09:00→20:57)
[2021-12-04] MEDS: Lisinopril 10 MG TAB PO SCH ×2 (09:00→20:57)
[2021-12-04] MEDS: Polyethylene Glycol 3350 17 GM Packet PO SCH ×2 (09:01→20:58)
[2021-12-04 09:20] LABS: QuantiFERON-TB Gold Plus Negative (Negative)
[2021-12-05 05:15] LABS: #Eosinphils 0.7 thou/uL (0.0-0.7); #Lymphocytes 0.9 thou/uL (1.20-3.40); #Monocytes 0.4 thou/uL (0.11-0.59); #Neutrophils 2.3 thou/uL (1.40-6.50); %Basophils 0.2 % (0.0-1.0); %Eosinophils 16.3 % (0.0-10.0); %Lymphocytes 21.1 % (21.0-51.0); %Monocytes 8.5 % (0.0-10.0); %Neutrophils 53.8 % (42.0-75.0); Hemoglobin 10.5 g/dL (14.0-18.0); Mean Corpuscular HGB CONC 34.7 g/dL (32.0-36.0); Mean Corpuscular Hemoglobin 32.4 pg (27.0-31.0); Mean Corpuscular Volume 93.4 fL (78.0-98.0); Mean Platelet Volume 7.9 fL (7.4-10.4); Platelet Count 137 thou/uL (130-400); Red Blood Cell (RBC) Count 3.23 mill/uL (4.70-6.10); White Blood Cell (WBC) Count 4.3 thou/uL (4.8-10.8)
[2021-12-05 05:28] LABS: ALT (SGPT) 11 U/L (8-55); AST (SGOT) 9 U/L (5-34); Alkaline Phosphatase 69 U/L (40-110); Anion Gap 9 mmol/L (10-20); BUN (Urea Nitrogen) 26 mg/dL (8.9-20.6); Bilirubin, Total 0.4 mg/dL (0.2-1.2); Calc. Creatinine Clearance 64 mL/min (70-130); Calcium 9.6 mg/dL (7.8-10.44); Carbon Dioxide 26 mmol/L (22-29); Chloride 107 mmol/L (98-107); Globulin 3.5 g/dL (2.4-3.5); Glucose 108 mg/dL (70-105); Potassium 3.7 mmol/L (3.5-5.1); Protein, Total 6.5 g/dL (6.0-8.3); Sodium 138 mmol/L (136-145)
[2021-12-05 07:19] LABS: Final Culture No virus isolated. (.)
[2021-12-05] MEDS: Lisinopril 10 MG TAB PO SCH ×2 (08:26→21:39)
[2021-12-05] MEDS: Carvedilol 6.25 MG TAB PO SCH ×2 (08:26→16:07)
[2021-12-05] MEDS: Gabapentin 100 MG CAP PO SCH ×3 (08:26→21:39)
[2021-12-05] MEDS: Heparin 5,000 UNITS/ML VIAL SC SCH ×3 (08:26→21:41)
[2021-12-05] MEDS: Aspirin 81 mg Enteric Coated Tablet PO SCH (08:26)
[2021-12-05] MEDS: Polyethylene Glycol 3350 17 GM Packet PO SCH ×2 (08:33→21:40)
[2021-12-05] MEDS: Senokot 8.6 MG TAB PO SCH (08:33)
[2021-12-05] MEDS: Calcium Carbonate 500 MG ChewTAB PO PRN ×2 (09:59→16:07)
[2021-12-06] MEDS: Polyethylene Glycol 3350 17 GM Packet PO SCH ×2 (09:17→21:48)
[2021-12-06] MEDS: Senokot 8.6 MG TAB PO SCH (09:17)
[2021-12-06] MEDS: Aspirin 81 mg Enteric Coated Tablet PO SCH (09:21)
[2021-12-06] MEDS: Lisinopril 10 MG TAB PO SCH ×2 (09:21→21:47)
[2021-12-06] MEDS: Carvedilol 6.25 MG TAB PO SCH ×2 (09:22→17:23)
[2021-12-06] MEDS: Heparin 5,000 UNITS/ML VIAL SC SCH ×3 (09:23→21:47)
[2021-12-06] MEDS: Gabapentin 100 MG CAP PO SCH ×3 (09:23→21:47)
[2021-12-06] MEDS: Acetaminophen 500 MG TAB PO PRN (12:22)
[2021-12-07] MEDS: Aspirin 81 mg Enteric Coated Tablet PO SCH (08:34)
[2021-12-07] MEDS: Carvedilol 6.25 MG TAB PO SCH ×2 (08:34→16:19)
[2021-12-07] MEDS: Gabapentin 100 MG CAP PO SCH ×3 (08:34→20:31)
[2021-12-07] MEDS: Lisinopril 10 MG TAB PO SCH ×2 (08:34→20:31)
[2021-12-07] MEDS: Heparin 5,000 UNITS/ML VIAL SC SCH ×3 (08:35→20:30)
[2021-12-07] MEDS ORDERED: predniSONE 20 MG TAB PO SCH (08:45)
[2021-12-07] MEDS: Senokot 8.6 MG TAB PO SCH (09:08)
[2021-12-07] MEDS: Polyethylene Glycol 3350 17 GM Packet PO SCH ×2 (09:08→20:33)
[2021-12-07] MEDS ORDERED: Glycerin Adult Supp. (24 ct jar) PR SCH (09:45)
[2021-12-07] MEDS ORDERED: Diclofenac 1% 100 GM GEL TP PRN (09:54)
[2021-12-07 12:44] LABS: ALT (SGPT) 11 U/L (8-55); AST (SGOT) 13 U/L (5-34); Albumin 3.2 g/dL (3.5-5.0); Alkaline Phosphatase 60 U/L (40-110); Anion Gap 11 mmol/L (10-20); BUN (Urea Nitrogen) 27 mg/dL (8.9-20.6); Bilirubin, Total 0.6 mg/dL (0.2-1.2); Calc. Creatinine Clearance 56 mL/min (70-130); Calcium 9.6 mg/dL (7.8-10.44); Carbon Dioxide 27 mmol/L (22-29); Chloride 104 mmol/L (98-107); Globulin 3.7 g/dL (2.4-3.5); Glucose 188 mg/dL (70-105); Potassium 4.5 mmol/L (3.5-5.1); Protein, Total 6.9 g/dL (6.0-8.3); Sodium 137 mmol/L (136-145)
[2021-12-07 12:50] LABS: #Eosinphils 0.3 thou/uL (0.0-0.7); #Lymphocytes 0.6 thou/uL (1.20-3.40); #Monocytes 0.1 thou/uL (0.11-0.59); %Eosinophils 6.1 % (0.0-10.0); %Monocytes 2.5 % (0.0-10.0); %Neutrophils 79.4 % (42.0-75.0); Anisocytosis SLIGHT = 6-15 cells (100X) (0-5/hpf); MDiff Complete? YES; Mean Corpuscular Hemoglobin 32.9 pg (27.0-31.0); Mean Corpuscular Volume 93.9 fL (78.0-98.0); Platelet Count 118 thou/uL (130-400); Platelet Morphology Comment Appears Decreased; Polychromasia SLIGHT = 2-3 cells (100X) (0-2/hpf); RBC Distribution Width 15.4 % (11.5-14.5); Red Blood Cell (RBC) Count 3.35 mill/uL (4.70-6.10); White Blood Cell (WBC) Count 5.1 thou/uL (4.8-10.8)
[2021-12-08] MEDS: Polyethylene Glycol 3350 17 GM Packet PO SCH ×2 (08:52→20:38)
[2021-12-08] MEDS: Senokot 8.6 MG TAB PO SCH (08:52)
[2021-12-08] MEDS: Aspirin 81 mg Enteric Coated Tablet PO SCH (08:55)
[2021-12-08] MEDS: Lisinopril 10 MG TAB PO SCH ×2 (08:55→20:28)
[2021-12-08] MEDS: Carvedilol 6.25 MG TAB PO SCH ×2 (08:55→16:00)
[2021-12-08] MEDS: predniSONE 20 MG TAB PO SCH (08:55)
[2021-12-08] MEDS: Heparin 5,000 UNITS/ML VIAL SC SCH ×3 (08:56→20:28)
[2021-12-08] MEDS: Gabapentin 100 MG CAP PO SCH ×3 (08:56→20:28)
[2021-12-08 09:25] LABS: Anion Gap 11 mmol/L (10-20); BUN (Urea Nitrogen) 33 mg/dL (8.9-20.6); Calc. Creatinine Clearance 62 mL/min (70-130); Calcium 9.9 mg/dL (7.8-10.44); Carbon Dioxide 25 mmol/L (22-29); Chloride 108 mmol/L (98-107); Glucose 130 mg/dL (70-105); Potassium 3.7 mmol/L (3.5-5.1); Sodium 140 mmol/L (136-145)
[2021-12-08] MEDS: Lidocaine 5% Patch TD PRN (16:00)
[2021-12-09 08:45] LABS: #Eosinphils 0.2 thou/uL (0.0-0.7); #Lymphocytes 0.8 thou/uL (1.20-3.40); #Monocytes 0.5 thou/uL (0.11-0.59); #Neutrophils 4.5 thou/uL (1.40-6.50); %Basophils 0.2 % (0.0-1.0); %Eosinophils 3.1 % (0.0-10.0); %Lymphocytes 13.4 % (21.0-51.0); %Monocytes 8.4 % (0.0-10.0); Mean Corpuscular HGB CONC 33.6 g/dL (32.0-36.0); Mean Corpuscular Hemoglobin 32.2 pg (27.0-31.0); Mean Platelet Volume 8.2 fL (7.4-10.4); Platelet Count 138 thou/uL (130-400); RBC Distribution Width 15.2 % (11.5-14.5); Red Blood Cell (RBC) Count 3.41 mill/uL (4.70-6.10)
[2021-12-09] MEDS: Gabapentin 100 MG CAP PO SCH ×3 (10:55→20:16)
[2021-12-09] MEDS: Lisinopril 10 MG TAB PO SCH ×2 (10:55→20:16)
[2021-12-09] MEDS: Aspirin 81 mg Enteric Coated Tablet PO SCH (10:55)
[2021-12-09] MEDS: Carvedilol 6.25 MG TAB PO SCH ×2 (10:56→15:31)
[2021-12-09] MEDS: Polyethylene Glycol 3350 17 GM Packet PO SCH ×2 (10:57→20:17)
[2021-12-09] MEDS: Senokot 8.6 MG TAB PO SCH (10:57)
[2021-12-09] MEDS: Heparin 5,000 UNITS/ML VIAL SC SCH ×3 (10:57→20:16)
[2021-12-09] MEDS: predniSONE 20 MG TAB PO SCH (10:57)
[2021-12-09 11:48] LABS: ALT (SGPT) 10 U/L (8-55); AST (SGOT) 9 U/L (5-34); Albumin 3.2 g/dL (3.5-5.0); Alkaline Phosphatase 71 U/L (40-110); Anion Gap 11 mmol/L (10-20); BUN (Urea Nitrogen) 31 mg/dL (8.9-20.6); Bilirubin, Total 0.3 mg/dL (0.2-1.2); Calc. Creatinine Clearance 65 mL/min (70-130); Calcium 9.6 mg/dL (7.8-10.44); Carbon Dioxide 24 mmol/L (22-29); Chloride 109 mmol/L (98-107); Globulin 3.8 g/dL (2.4-3.5); Glucose 105 mg/dL (70-105); Potassium 3.5 mmol/L (3.5-5.1); Sodium 140 mmol/L (136-145)
[2021-12-09] MEDS: hydrALAZINE 10 MG TAB PO SCH ×2 (15:31→20:16)
[2021-12-09] MEDS: Lidocaine 5% Patch TD PRN (15:35)
[2021-12-09] MEDS: Acetaminophen 325 MG TAB PO PRN (21:21)
[2021-12-10] MEDS: Gabapentin 100 MG CAP PO SCH ×2 (08:33→14:15)
[2021-12-10] MEDS: Aspirin 81 mg Enteric Coated Tablet PO SCH (08:34)
[2021-12-10] MEDS: Carvedilol 6.25 MG TAB PO SCH (08:34)
[2021-12-10] MEDS: hydrALAZINE 10 MG TAB PO SCH ×2 (08:34→14:16)
[2021-12-10] MEDS: Lisinopril 10 MG TAB PO SCH (08:34)
[2021-12-10] MEDS: Heparin 5,000 UNITS/ML VIAL SC SCH ×2 (08:35→14:44)
[2021-12-10] MEDS: predniSONE 20 MG TAB PO SCH (08:35)
[2021-12-10] MEDS: Polyethylene Glycol 3350 17 GM Packet PO SCH (08:36)
[2021-12-10] MEDS: Senokot 8.6 MG TAB PO SCH (08:36)
[2021-12-10 11:34] VITALS: BP 147/89; TEMP 97.7
== END 2021-12-10 14:50 | disposition home or self-care (01) | DRG 987 ==
LOC: T4-B 11-21 01:51 → NEURO 11-21 08:09
PROVIDERS: ADMIT Family Medicine; ATTEND Family Medicine
PROC: 009U3ZX Drainage of Spinal Canal, Percutaneous Approach, Diagnostic (ICD-10-PCS; 2021-11-24)
PROC: B01BZZZ Fluoroscopy of Spinal Cord (ICD-10-PCS; 2021-11-24)
PROC: 009U3ZX Drainage of Spinal Canal, Percutaneous Approach, Diagnostic (ICD-10-PCS; 2021-11-26)
PROC: B01BZZZ Fluoroscopy of Spinal Cord (ICD-10-PCS; 2021-11-26)
PROC: 07BJ3ZX Excision of Left Inguinal Lymphatic, Percutaneous Approach, Diagnostic (ICD-10-PCS; principal; 2021-12-02)
PROC: 0YB53ZX Excision of Right Inguinal Region, Percutaneous Approach, Diagnostic (ICD-10-PCS; 2021-12-03)
DX: D86.89 Sarcoidosis of other sites (principal); I21.A1 Myocardial infarction type 2; I50.21 Acute systolic (congestive) heart failure; G03.1 Chronic meningitis; G82.20 Paraplegia, unspecified; N17.9 Acute kidney failure, unspecified; I42.9 Cardiomyopathy, unspecified; I13.0 Hypertensive heart and chronic kidney disease with heart failure and stage 1 through stage 4 chronic kidney disease, or unspecified chronic kidney disease; I88.8 Other nonspecific lymphadenitis; M62.59 Muscle wasting and atrophy, not elsewhere classified, multiple sites; Z20.822 Contact with and (suspected) exposure to COVID-19; M10.9 Gout, unspecified; N20.0 Calculus of kidney; F17.210 Nicotine dependence, cigarettes, uncomplicated; E83.52 Hypercalcemia; I44.7 Left bundle-branch block, unspecified; N18.30 Chronic kidney disease, stage 3 unspecified; Z88.0 Allergy status to penicillin; I11.0 Hypertensive heart disease with heart failure; Z91.041 Radiographic dye allergy status; Z83.3 Family history of diabetes mellitus; Z82.49 Family history of ischemic heart disease and other diseases of the circulatory system; Z84.1 Family history of disorders of kidney and ureter; I49.3 Ventricular premature depolarization; I44.1 Atrioventricular block, second degree; K59.00 Constipation, unspecified; R15.9 Full incontinence of feces
CPT/HCPCS: 36415; 36416; 38505; 62270; 70553; 71045; 72156; 72157; 72158; 74018; 74177; 76705; 78227; 78452; 80048; 80053; 80061; 80306; 81001; 82164; 82306; 82550; 82570; 82607; 82945; 83036; 83615; 83690; 83735; 83873; 83916; 83970; 84100; 84134; 84156; 84157; 84165; 84166; 84300; 84443; 84484; 85025; 85060; 86038; 86140; 86225; 86480; 86612; 86635; 86698; 86780; 86788; 86789; 86803; 87040; 87070; 87086; 87102; 87116; 87205; 87206; 87252; 87385; 87389; 87529; 87899; 88112; 88184; 88305; 88307; 88312; 89051; 93005; 93010; 93017; 93306; A9500; A9537; A9579; J0360; J1200; J1644; J2060; J2270; J2785; J3010; J3475; J7050; J7512; Q0162; Q9967; U0003; U0005